=== PATIENT | male | born 1985 | race American Indian/Alaskan Native ===

== ENCOUNTER 2017-01-02 18:01 | Emergency (ER) | payer SELFPAY ==
[2017-01-02 22:31] VITALS: BP 129/83
--- NOTE | 2017-01-03 06:51 | Emergency Department Report ---
Entered by KAYCEE TRUJILLO, acting as scribe for DAVID DIAZ NP. - General Chief Complaint: Upper Respiratory Infection Stated Complaint: FLU LIKE SYMPTOMS Time Seen by Provider: 01/02/17 19:22 Source: patient Mode of arrival: Ambulatory Limitations: No Limitations - History of Present Illness Initial Comments: 31 y/o male presents c/o flu like Sx that started 3 days ago. Sx include rhinorhhea, sore throat, abd pain, body aches, MAYES and productive yellow sputum producing cough. Pt denies fever, ear pain, wheezing, chest pain, SOB or N/V. Pt notes niece and sister as positive sick contacts with the flu. No OTC meds have been taken. MD Complaint: cough, sore throat, rhinorrhea, nasal congestion -: days(s) (3) Severity: mild Quality: aching Consistency: constant Improves With: nothing Worsens With: nothing Context: sick contacts (niece and sister) Associated Symptoms: headache, rhinorrhea, nasal congestion, sore throat, cough , abdominal pain, other (body aches, MAYES but pt denies wheezing, ear pain). denies: fever, chest pain, shortness of breath, nausea, vomiting, ear pain Treatments Prior to Arrival: none - Related Data Previous Rx's Medication Instructions Recorded Last Taken Type Ibuprofen [Motrin] 600 mg PO Q8H PRN #30 tablet 10/22/15 Unknown Rx traMADol [Ultram] 50 mg PO Q6HR PRN #20 tablet 10/22/15 Unknown Rx ALBUTEROL Inhaler [ProAir HFA 2 puff IH QID PRN #1 inhalation 01/08/16 Unknown Rx Inhaler] Amoxicillin 500 mg PO BID 10 Days 01/02/17 Unknown Rx Ibuprofen [Motrin 600 MG tab] 600 mg PO Q8H PRN 7 Days 01/02/17 Unknown Rx Allergies Allergy/AdvReac Type Severity Reaction Status Date / Time No Known Allergies Allergy Unverified 08/26/14 10:42 ED Review of Systems Comment: All other systems reviewed and negative Constitutional: other (body aches). denies: chills, fever Eyes: denies: eye pain, eye discharge, vision change ENT: other (rhinorrhea). denies: ear pain, throat pain Respiratory: cough. denies: shortness of breath, wheezing Cardiovascular: denies: chest pain, palpitations Endocrine: no symptoms reported Gastrointestinal: abdominal pain. denies: nausea, diarrhea Genitourinary: denies: urgency, dysuria Musculoskeletal: denies: back pain, joint swelling, arthralgia Skin: denies: rash, lesions Neurological: headache. denies: weakness, paresthesias Psychiatric: denies: anxiety, depression Hematological/Lymphatic: denies: easy bleeding, easy bruising ED Past Medical Hx - Past Medical History Previous Medical History?: Yes Additional medical history: bronchitis - Surgical History Past Surgical History?: No - Social History Smoking Status: Current Every Day Smoker Substance Use Type: None - Medications Home Medications: Home Medications Medication Instructions Recorded Confirmed Last Taken Type Ibuprofen [Motrin] 600 mg PO Q8H PRN #30 tablet 10/22/15 Unknown Rx traMADol [Ultram] 50 mg PO Q6HR PRN #20 tablet 10/22/15 Unknown Rx ALBUTEROL Inhaler [ProAir HFA 2 puff IH QID PRN #1 inhalation 01/08/16 Unknown Rx Inhaler] Amoxicillin 500 mg PO BID 10 Days 01/02/17 Unknown Rx Ibuprofen [Motrin 600 MG tab] 600 mg PO Q8H PRN 7 Days 01/02/17 Unknown Rx ED Physical Exam - General Limitations: No Limitations General appearance: alert, in no apparent distress - Head Head exam: Present: atraumatic, normocephalic - Eye Eye exam: Present: normal appearance - ENT ENT exam: Present: mucous membranes moist, other (slight erythema of oropharanx , no tonsillar exudates, no tonsillitis, erythema of nostrils bilaterally) - Neck Neck exam: Present: normal inspection - Respiratory Respiratory exam: Present: normal lung sounds bilaterally. Absent: respiratory distress - Cardiovascular Cardiovascular Exam: Present: regular rate, normal rhythm. Absent: systolic murmur, diastolic murmur, rubs, gallop - GI/Abdominal GI/Abdominal exam: Present: soft, normal bowel sounds - Rectal Rectal exam: Present: deferred - Extremities Exam Extremities exam: Present: normal inspection - Back Exam Back exam: Present: normal inspection - Neurological Exam Neurological exam: Present: alert, oriented X3 - Psychiatric Psychiatric exam: Present: normal affect, normal mood - Skin Skin exam: Present: warm, dry, intact, normal color. Absent: rash ED Course Vital Signs 01/02/17 01/02/17 18:37 22:30 Temperature 98.0 F Pulse Rate 59 L 53 L Respiratory 20 16 Rate Blood Pressure 131/86 Blood Pressure 129/83 [Left] O2 Sat by Pulse 100 Oximetry ED Medical Decision Making - Medical Decision Making Ed course: 31-year-old male that presents with upper respiratory symptoms 1- fluid and swab has been obtained in the ED. Negative for both. 2- patient was instructed of results. 3- patient receive a prescription of amoxicillin and was instructed to take if symptoms worsen or if symptoms continue more than 10 days. 4- the time of discharge the patient does not seem toxic or ill in appearance. No signs of distress noted. 5- patient agrees to discharge plan and treatment. No further questions noted at the time. 6- I also instructed patient to increase rest and fluids as this may be a viral and will take couple days to subside ED Disposition Clinical Impression: Upper respiratory infection Qualifiers: URI type: unspecified URI Qualified Code(s): J06.9 - Acute upper respiratory infection, unspecified Disposition: DISCHARGED TO HOME OR SELFCARE Is pt being admited?: No Does the pt Need Aspirin: No Condition: Stable Instructions: Ibuprofen (By mouth), Upper Respiratory Infection (ED) Additional Instructions: Follow-up with the primary care doctor in 3-5 days. Take antibiotics as prescribed only if symptoms worsen or symptoms continue for 10 days Increase rest and fluids intake. Prescriptions: Amoxicillin 500 mg PO BID 10 Days Ibuprofen [Motrin 600 MG tab] 600 mg PO Q8H PRN 7 Days PRN Reason: Pain Referrals: PRIMARY CARE, [Primary Care Provider] - 3-5 Days [facility] [Outside] - 3-5 Days [facility] [Outside] - 3-5 Days Forms: Work/School Release Form(ED) This documentation as recorded by the CASSANDRA agosto RYAN,accurately reflects the service I personally performed and the decisions made by ,DAVID DIAZ, YAZMIN.
== END 2017-01-02 22:32 | disposition home or self-care (01) ==
LOC: ED 18:01
DX: J06.9 Acute upper respiratory infection, unspecified (principal); F17.200 Nicotine dependence, unspecified, uncomplicated
CPT/HCPCS: 87116; 87400; 87430; 99282

== ENCOUNTER 2017-08-14 04:12 | Emergency (ER) | payer BC ==
[2017-08-14 05:51] VITALS: BP 127/64
--- NOTE | 2017-08-14 06:26 | XRay Report ---
FINAL REPORT EXAM: XR CHEST ROUTINE 2V HISTORY: cough and congestion TECHNIQUE: PA and lateral views of the chest were submitted. FINDINGS: The heart size and mediastinum appear normal. The lungs are clear. Pleural fluid is not seen. The bones and soft tissues well maintained. IMPRESSION: No active chest disease.
--- NOTE | 2017-08-14 09:44 | Emergency Department Report ---
HPI - General Chief Complaint: Upper Respiratory Infection Time Seen by Provider: 08/14/17 09:27 - HPI HPI: 32-year-old male with no prior medical history presents to the ED complaining for body aches, runny nose and sore throat 2 days. Patient states is taking some [id number] medication with no relief. She does not recall any sick contacts. She denies fevers/chills/nausea/vomiting this abdomen S chest pains or shortness of breath or any other problems. ED Past Medical Hx - Past Medical History Additional medical history: bronchitis - Surgical History Past Surgical History?: No - Social History Smoking Status: Current Every Day Smoker Substance Use Type: None - Medications Home Medications: Home Medications Medication Instructions Recorded Confirmed Last Taken Type traMADol [Ultram] 50 mg PO Q6HR PRN #20 tablet 10/22/15 Unknown Rx ALBUTEROL Inhaler [ProAir HFA 2 puff IH QID PRN #1 inhalation 01/08/16 Unknown Rx Inhaler] Amoxicillin 500 mg PO BID 10 Days capsule 01/02/17 Unknown Rx Ibuprofen [Motrin 600 MG tab] 600 mg PO Q8H PRN 7 Days tablet 01/02/17 Unknown Rx Ibuprofen [Motrin 600 MG tab] 600 mg PO Q8H PRN #30 tablet 08/14/17 Unknown Rx Nystas/Diphen/Xyl Visc/Mylanta 15 ml PO TID #60 ml 08/14/17 Unknown Rx [Magic Mouthwash] guaiFENesin ER [Mucinex ER] 600 mg PO Q12H #20 tablet.er 08/14/17 Unknown Rx ED Review of Systems ROS: Stated complaint: FLU LIKE SYMPTOMS Other details as noted in HPI Constitutional: denies: chills, fever Eyes: denies: eye pain, eye discharge, vision change ENT: throat pain, congestion. denies: ear pain Respiratory: denies: cough, shortness of breath, wheezing Cardiovascular: denies: chest pain, palpitations Endocrine: no symptoms reported Gastrointestinal: denies: abdominal pain, nausea, vomiting, diarrhea Genitourinary: denies: urgency, dysuria, frequency, hematuria Musculoskeletal: denies: back pain, joint swelling, arthralgia Skin: denies: rash, lesions, pruritus Neurological: denies: headache, weakness, paresthesias Psychiatric: denies: anxiety, depression Hematological/Lymphatic: denies: easy bleeding, easy bruising Physical Exam - Physical Exam Vital Signs: Vital Signs 08/14/17 05:43 Temperature 98.4 F Pulse Rate 56 L Respiratory 16 Rate Blood Pressure 127/64 O2 Sat by Pulse 98 Oximetry Physical Exam: GENERAL: Alert and oriented x3, no apparent distress, Normal Gait, atraumatic. HEAD: Head is normocephalic and a-traumatic. EYES: Extra ocular muscles are intact. Pupils are equal, round, and reactive to light and accommodation. EARS: symetrical, atraumatic, non tender, ear canal clear and moderate cerumen, tympanic membrance non inflamed. gross auditory nml bilaterally. NOSE: Nose symetrical, Nontender,Nares appeared normal. MOUTH:Mouth is well hydrated and without lesions. Tonsils nonerythematous or swollen, Uvula midline, Tongue not elevated. Mucous membranes are moist. Posterior pharynx clear, no exudate or lesions. Patent airways. NECK: Supple. Non edematous, No carotid bruits. No lymphadenopathy or thyromegaly. No C-spine tenderness LUNGS: Symetrical with respiration, No wheezing, no rales or crackles, CTAB. HEART: S1, S2 present, regular rate and rhythm without murmur, no rubs, no gallops. Non tender to palpation SKIN: Warm and dry, No lesions, No ulceration or induration present. ED Course Vital Signs 08/14/17 05:43 Temperature 98.4 F Pulse Rate 56 L Respiratory 16 Rate Blood Pressure 127/64 O2 Sat by Pulse 98 Oximetry ED Medical Decision Making - Medical Decision Making 32-year-old male presents with upper respiratory infection ED course: Rapid strep test negative Discussed findings with the patient I discussed with the patient to follow up with primary care physician I discussed with the patient to take medication as prescribed, get some rest, took some vitamin C. Vital signs are normal patient is in no acute distress States he understands instructions and will follow Critical care attestation.: If time is entered above; I have spent that time in minutes in the direct care of this critically ill patient, excluding procedure time. ED Disposition Clinical Impression: URI (upper respiratory infection) Qualifiers: URI type: unspecified URI Qualified Code(s): J06.9 - Acute upper respiratory infection, unspecified Disposition: TO HOME OR SELFCARE Is pt being admited?: No Does the pt Need Aspirin: No Condition: Stable Instructions: Upper Respiratory Infection (ED) Additional Instructions: Make sure to follow up with the primary care physician as discussed. Take all your medications as you've been prescribed. If you have any worsening symptoms or develop new symptoms please return to ED immediately. Prescriptions: guaiFENesin ER [Mucinex ER] 600 mg PO Q12H #20 tablet.er Ibuprofen [Motrin 600 MG tab] 600 mg PO Q8H PRN #30 tablet PRN Reason: Pain Nystas/Diphen/Xyl Visc/Mylanta [Magic Mouthwash] 15 ml PO TID #60 ml Referrals: PRIMARY CARE, [Primary Care Provider] - 3-5 Days [facility] [Outside] - 3-[address] [facility] [Outside] - 3-5 Days Forms: Work/School Release Form(ED) Time of Disposition: 09:59
[2017-08-14] MEDS ORDERED: MOTRIN PO ONE (09:53)
== END 2017-08-14 10:20 | disposition home or self-care (01) ==
LOC: ED 04:12
DX: J06.9 Acute upper respiratory infection, unspecified (principal); F17.200 Nicotine dependence, unspecified, uncomplicated
CPT/HCPCS: 71020; 87116; 87430; 99283

== ENCOUNTER 2019-04-12 14:39 | Emergency (ER) | payer SELFPAY ==
[2019-04-12 15:15] VITALS: BP 136/83
[2019-04-12] MEDS ORDERED: TORADOL IM ONE (15:20)
[2019-04-12] MEDS ORDERED: TORADOL ONE (15:23)
--- NOTE | 2019-04-12 15:25 | Emergency Department Report ---
ED Extremity Problem HPI - General Chief complaint: Extremity Injury, Lower Stated complaint: LFT SIDE HIP INJURY/PAIN Time Seen by Provider: 04/12/19 15:19 Source: patient Mode of arrival: Ambulatory Limitations: No Limitations - History of Present Illness Initial comments: 33 y/o male comes in for left hip pain after bowling yesterday. Patient denies any trauma feels that when he let the ball go he felt a strain in his left hip. Patient has taken IB 400mg once. Complaint: extremity pain Onset/Timin -: days(s) Location: left, other (hip) History of Same: No -: Yes myalgia Severity scale (0 -10): 6 Quality: burning, aching Consistency: intermittent Improves with: rest Associated Symptoms: denies other symptoms - Related Data Previous Rx's Medication Instructions Recorded Last Taken Type traMADol [Ultram] 50 mg PO Q6HR PRN #20 tablet 10/22/15 Unknown Rx ALBUTEROL Inhaler (OR & NICU) 2 puff IH QID PRN #1 inhalation 01/08/16 Unknown Rx [ProAir HFA Inhaler] Amoxicillin 500 mg PO BID 10 Days capsule 01/02/17 Unknown Rx Ibuprofen [Motrin 600 MG tab] 600 mg PO Q8H PRN 7 Days tablet 01/02/17 Unknown Rx Ibuprofen [Motrin 600 MG tab] 600 mg PO Q8H PRN #30 tablet 08/14/17 Unknown Rx Nystas/Diphen/Xyl Visc/Mylanta 15 ml PO TID #60 ml 08/14/17 Unknown Rx [Magic Mouthwash] guaiFENesin ER [Mucinex ER] 600 mg PO Q12H #20 tablet.er 08/14/17 Unknown Rx Ibuprofen [Motrin 800 MG tab] 800 mg PO Q8HR PRN #30 tablet 04/12/19 Unknown Rx Allergies Allergy/AdvReac Type Severity Reaction Status Date / Time No Known Allergies Allergy Unverified 08/26/14 10:42 ED Review of Systems ROS: Stated complaint: LFT SIDE HIP INJURY/PAIN Other details as noted in HPI Comment: All other systems reviewed and negative ED Past Medical Hx - Past Medical History Previous Medical History?: No Additional medical history: bronchitis - Surgical History Past Surgical History?: No - Social History Smoking Status: Never Smoker Substance Use Type: None - Medications Home Medications: Home Medications Medication Instructions Recorded Confirmed Last Taken Type traMADol [Ultram] 50 mg PO Q6HR PRN #20 tablet 10/22/15 Unknown Rx ALBUTEROL Inhaler (OR & NICU) 2 puff IH QID PRN #1 inhalation 01/08/16 Unknown Rx [ProAir HFA Inhaler] Amoxicillin 500 mg PO BID 10 Days capsule 01/02/17 Unknown Rx Ibuprofen [Motrin 600 MG tab] 600 mg PO Q8H PRN 7 Days tablet 01/02/17 Unknown Rx Ibuprofen [Motrin 600 MG tab] 600 mg PO Q8H PRN #30 tablet 08/14/17 Unknown Rx Nystas/Diphen/Xyl Visc/Mylanta 15 ml PO TID #60 ml 08/14/17 Unknown Rx [Magic Mouthwash] guaiFENesin ER [Mucinex ER] 600 mg PO Q12H #20 tablet.er 08/14/17 Unknown Rx Ibuprofen [Motrin 800 MG tab] 800 mg PO Q8HR PRN #30 tablet 04/12/19 Unknown Rx ED Physical Exam - General Limitations: No Limitations General appearance: alert, in no apparent distress - Head Head exam: Present: atraumatic, normocephalic - Eye Eye exam: Present: normal appearance - ENT ENT exam: Present: mucous membranes moist - Neck Neck exam: Present: normal inspection - Respiratory Respiratory exam: Present: normal lung sounds bilaterally. Absent: respiratory distress - Cardiovascular Cardiovascular Exam: Present: regular rate, normal rhythm. Absent: systolic murmur, diastolic murmur, rubs, gallop - GI/Abdominal GI/Abdominal exam: Present: soft, normal bowel sounds - Rectal Rectal exam: Present: deferred - Extremities Exam Extremities exam: Present: normal inspection - Back Exam Back exam: Present: normal inspection - Neurological Exam Neurological exam: Present: alert, oriented X3 - Psychiatric Psychiatric exam: Present: normal affect, normal mood - Skin Skin exam: Present: warm, dry, intact, normal color. Absent: rash ED Course Vital Signs 04/12/19 15:14 Temperature 97.7 F Pulse Rate 48 L Respiratory 16 Rate Blood Pressure 136/83 O2 Sat by Pulse 100 Oximetry ED Medical Decision Making - Medical Decision Making 33 y/o male comes in for left hip pain after bowling yesterday. Patient denies any trauma feels that when he let the ball go he felt a strain in his left hip. Patient has taken IB 400mg once. Patient given toradol 30 mg and discharge home with ibuprofen 800mg tid. Discussed with patient to take on a schedule basis for 3 days and than as needed. Critical care attestation.: If time is entered above; I have spent that time in minutes in the direct care of this critically ill patient, excluding procedure time. ED Disposition Clinical Impression: Acute pain of left hip Disposition: TO HOME OR SELFCARE Is pt being admited?: No Does the pt Need Aspirin: No Condition: Stable Additional Instructions: Please take medication as prescribed. If gets worst f/i with Primary care provider. Prescriptions: Ibuprofen [Motrin 800 MG tab] 800 mg PO Q8HR PRN #30 tablet PRN Reason: Pain , Severe (7-10) Referrals: [facility] [Provider Group] - 3-5 Days Forms: Work/School Release Form(ED)
== END 2019-04-12 15:51 | disposition home or self-care (01) ==
LOC: ED 14:39
DX: M25.552 Pain in left hip (principal); Z79.899 Other long term (current) drug therapy
CPT/HCPCS: 96372; 99282; J1885

== ENCOUNTER 2019-12-13 15:53 | Emergency (ER) | payer SELFPAY ==
[2019-12-13 17:15] LABS: Hematocrit 44.3 % (35.5-45.6); Hemoglobin 15.1 gm/dl (11.8-15.2); Mean Corpuscular HGB Conc 34 % (32-34); Mean Corpuscular Volume 99 fl (84-94); Platelet Count 153 K/mm3 (140-440); Red Blood Count 4.48 M/mm3 (3.65-5.03); Red Cell Distribution Width 14.3 % (13.2-15.2)
[2019-12-13 17:29] LABS: Eosinophils % (Auto) 0.9 % (0.0-4.3); Monocytes # (Auto) 0.4 K/mm3 (0.0-0.8); Monocytes % (Auto) 9.1 % (0.0-7.3)
[2019-12-13 17:38] LABS: Alanine Aminotransferase 17 units/L (7-56); Albumin 5.2 g/dL (3.9-5); BUN/Creatinine Ratio 20; Blood Urea Nitrogen 18 mg/dL (9-20); Calcium 9.7 mg/dL (8.4-10.2); Hemolysis Index 19
[2019-12-13 17:39] LABS: Basophils % (Auto) 0.8 % (0.0-1.8); Lymphocytes % (Auto) 42.8 % (13.4-35.0)
[2019-12-13 17:40] LABS: Lymphocytes # (Auto) 2.1 K/mm3 (1.2-5.4)
--- NOTE | 2019-12-13 18:07 | Emergency Department Report ---
Chief Complaint: Abdominal Pain Stated Complaint: STOMACH PAIN, DIRR Time Seen by Provider: 12/13/19 17:14 - HPI History of Present Illness: Patient is a 34-year-old male presents emergency room with complaints of abdominal cramping and diarrhea that began earlier this morning. He states he had approximately 3 episodes. He states that he is feeling much better now. He states that he believes he has a lactose intolerance because every time he eats dairy he has increased gas and diarrhea. He states that he did have diary last night. Patient states that he had to call out of work secondary to the diarrhea and needs an excuse for work. He denies any abdominal pain currently. He denies any fever, nausea, vomiting, cough, shortness of breath, chest pain. Initial vitals with elevated blood pressure, which improved upon repeat On exam: Non toxic appearing, no acute distress atraumatic, normocephalic normal appearance of the eyes, PERRL, EOMI, no periorbital edema or ecchymosis moist mucus membranes regular heart rate and rhythm, no gallops, no rubs, no murmurs breath sounds are clear bilaterally, no w/r/r No abdominal tenderness palpation, no guarding, no rebound, no rigidity, normal bowel sounds A&O x4, no focal neuro deficit skin is warm, dry, intact Patient has no clinical signs or symptoms of dehydration Labs are normal He is no longer experiencing abdominal pain or diarrhea Patient is requesting an excuse due to calling out from work Discussed symptomatic tx and supportive care with patient pt will be referred to a primary care physician Discussed strict return precautions with patient Medical screening examination performed and there is no threat to life or limb at this time MSE screening note: Focused history and physical exam performed. ED Medical Decision Making - Lab Data Result diagrams: 12/13/19 17:07 12/13/19 17:07 Lab Results 12/13/19 12/13/19 Range/Units 17:07 17:07 WBC 4.9 (4.5-11.0) K/mm3 RBC 4.48 (3.65-5.03) M/mm3 Hgb 15.1 (11.8-15.2) gm/dl Hct 44.3 (35.5-45.6) % MCV 99 H (84-94) fl MCH 34 H (28-32) pg MCHC 34 (32-34) % RDW 14.3 (13.2-15.2) % Plt Count 153 (140-440) K/mm3 Lymph % (Auto) 42.8 H (13.4-35.0) % Louisa % (Auto) 9.1 H (0.0-7.3) % Eos % (Auto) 0.9 (0.0-4.3) % Baso % (Auto) 0.8 (0.0-1.8) % Lymph # 2.1 (1.2-5.4) K/mm3 Louisa # 0.4 (0.0-0.8) K/mm3 Eos # 0.0 (0.0-0.4) K/mm3 Baso # 0.0 (0.0-0.1) K/mm3 Seg Neutrophils % 46.4 (40.0-70.0) % Seg Neutrophils # 2.3 (1.8-7.7) K/mm3 Sodium 140 (137-145) mmol/L Potassium 4.3 (3.6-5.0) mmol/L Chloride 103.6 (98-107) mmol/L Carbon Dioxide 26 (22-30) mmol/L Anion Gap 15 mmol/L BUN 18 (9-20) mg/dL Creatinine 0.9 (0.8-1.5) mg/dL Estimated GFR > 60 ml/min BUN/Creatinine Ratio 20 % Glucose 96 (75-100) mg/dL Calcium 9.7 (8.4-10.2) mg/dL Total Bilirubin 1.00 (0.1-1.2) mg/dL AST 26 (5-40) units/L ALT 17 (7-56) units/L Alkaline Phosphatase 55 (35-129) units/L Total Protein 7.8 (6.3-8.2) g/dL Albumin 5.2 H (3.9-5) g/dL Albumin/Globulin Ratio 2.0 % Lipase 23 (13-60) units/L ED Disposition for MSE Clinical Impression: Abdominal cramping, Elevated blood pressure reading Diarrhea Qualifiers: Diarrhea type: unspecified type Qualified Code(s): R19.7 - Diarrhea, unspecified Disposition: MED SCREENING EXAM-LEFT Is pt being admited?: No Does the pt Need Aspirin: No Condition: Stable Instructions: Acute Diarrhea (ED) Additional Instructions: Increase your water intake. Eat a bland diet. Avoid dairy products. Follow-up with a primary care doctor in the next 3 to 5 days. Return to the emergency room for any new or worsening symptoms. Please follow-up with a primary care doctor regarding the elevation in your blood pressure during today's visit, to see if you need medical management. Keep a blood pressure log and take your blood pressure 3 times a day and take this to the primary care doctor. Eat a low-sodium diet. Increase your water intake. Incorporate 30 minutes of daily exercise. Referrals: [facility] [Outside] - 3-5 Days [facility] [Outside] - 3-5 Days EMIGDIO GARCIA MD [Staff Physician] - 3-5 Days Forms: Work/School Release Form(ED) Time of Disposition: 18:05 Print Language: TOGOLESE
[2019-12-13 18:13] VITALS: BP 150/90
== END 2019-12-13 18:12 | disposition left against medical advice (07) ==
LOC: ED 15:53
DX: R19.7 Diarrhea, unspecified (principal); R10.84 Generalized abdominal pain; R03.0 Elevated blood-pressure reading, without diagnosis of hypertension
CPT/HCPCS: 36415; 80053; 83690; 85025

== ENCOUNTER 2020-05-10 17:55 | Emergency (ER) | payer SELFPAY ==
[2020-05-10 19:48] VITALS: BP 140/88
--- NOTE | 2020-05-10 19:49 | Event Note ---
ED Screening Note Date of service: 05/10/20 Time: 19:46 ED Screening Note: 34-year-old male smoker with a history of bronchitis complaining of chills, coughing, shortness of breath, fever, States he was seen here more to be evaluated for his symptoms. This initial assessment/diagnostic orders/clinical plan/treatment(s) is/are subject to change based on patients health status, clinical progression and re- assessment by fellow clinical providers in the ED. Further treatment and workup at subsequent clinical providers discretion. Patient/guardian urged not to elope from the ED as their condition may be serious if not clinically assessed and managed. Initial orders include: cxr
--- NOTE | 2020-05-10 20:20 | XRay Report ---
CHEST 2 VIEWS INDICATION / CLINICAL INFORMATION: MAIN. COMPARISON: 08/14/2017 FINDINGS: SUPPORT DEVICES: None. HEART / MEDIASTINUM: No significant abnormality. LUNGS / PLEURA: No significant pulmonary or pleural abnormality. No pneumothorax. ADDITIONAL FINDINGS: No significant additional findings. IMPRESSION: 1. No acute findings. No significant interval change. Signer Name: Titus Steele MD Signed: 05/10/2020 8:16 PM Workstation Name: [id number]
[2020-05-10] MEDS ORDERED: predniSONE 20 MG TAB PO ONE (22:25)
[2020-05-10] MEDS ORDERED: IBUPROFEN 600 MG TAB PO ONE (22:26)
--- NOTE | 2020-05-10 23:10 | Emergency Department Report ---
- General Chief Complaint: Upper Respiratory Infection Stated Complaint: FEVER COUGH Source: patient Mode of arrival: Ambulatory Limitations: No Limitations - History of Present Illness Initial Comments: Patient is a 34-year-old -Turkmen male with no past medical history presents to the ED with complaint of acute onset persistent nasal and sinus congestion, frontal sinus pressure and pain, sore throat, hoarseness and persistent dry cough for the last 2 days. Patient states that in the last 12 hours, the symptoms have worsened such that he momentarily lost his voice. Patient denies fever, chills, dizziness, syncope, chest pain, abdominal pain, nausea, vomiting, change in vision, diarrhea or hearing loss. MD Complaint: cough, sore throat, rhinorrhea, nasal congestion, sinus pain -: Sudden, days(s) (2) Severity: severe Severity scale (0 -10): 6 Quality: sharp Consistency: constant Improves With: nothing Worsens With: nothing Context: sick contacts Associated Symptoms: denies other symptoms, headache, rhinorrhea, nasal congestion, sore throat, cough. denies: fever, chills, myalgias, diaphoresis, chest pain, shortness of breath, abdominal pain, nausea, vomiting, dysuria, rash, right sweats, epistaxis, ear pain, other Treatments Prior to Arrival: none - Related Data Previous Rx's Medication Instructions Recorded Last Taken Type traMADoL [Ultram] 50 mg PO Q6HR PRN #20 tablet 10/22/15 Unknown Rx Albuterol Mdi (or & Nicu Only) 2 puff IH QID PRN #1 inhalation 01/08/16 Unknown Rx [ProAir HFA Inhaler] Amoxicillin 500 mg PO BID 10 Days capsule 01/02/17 Unknown Rx Ibuprofen [Motrin 600 MG tab] 600 mg PO Q8H PRN 7 Days tablet 01/02/17 Unknown Rx Nystas/Diphen/Xyl Visc/Mylanta 15 ml PO TID #60 ml 08/14/17 Unknown Rx [Magic Mouthwash] guaiFENesin ER [Mucinex ER] 600 mg PO Q12H #20 tablet.er 08/14/17 Unknown Rx Ibuprofen [Motrin 800 MG tab] 800 mg PO Q8HR PRN #30 tablet 04/12/19 Unknown Rx Azithromycin [Zithromax Z-KEN] 250 mg PO DAILY #6 tablet 09/02/20 Unknown Rx Ibuprofen [Motrin 600 MG tab] 600 mg PO Q8H PRN #30 tablet 05/10/20 Unknown Rx methylPREDNISolone [Medrol 4MG 4 mg PO DAILY #21 tab.ds.pk 05/10/20 Unknown Rx DOSEPAK (21 tabs)] Allergies Allergy/AdvReac Type Severity Reaction Status Date / Time No Known Allergies Allergy Unverified 08/26/14 10:42 ED Review of Systems ROS: Stated complaint: FEVER COUGH Other details as noted in HPI Constitutional: denies: chills, fever Eyes: denies: eye pain, eye discharge, vision change ENT: throat pain, congestion. denies: ear pain Respiratory: cough. denies: shortness of breath, wheezing Cardiovascular: denies: chest pain, palpitations Endocrine: no symptoms reported Gastrointestinal: denies: abdominal pain, nausea, diarrhea Genitourinary: denies: urgency, dysuria Musculoskeletal: denies: back pain, joint swelling, arthralgia Skin: denies: rash, lesions Neurological: headache. denies: weakness, paresthesias Psychiatric: denies: anxiety, depression Hematological/Lymphatic: denies: easy bleeding, easy bruising ED Past Medical Hx - Past Medical History Previous Medical History?: No Additional medical history: bronchitis - Surgical History Past Surgical History?: No - Social History Smoking Status: Current Every Day Smoker Substance Use Type: Alcohol, Marijuana - Medications Home Medications: Home Medications Medication Instructions Recorded Confirmed Last Taken Type traMADoL [Ultram] 50 mg PO Q6HR PRN #20 tablet 10/22/15 Unknown Rx Albuterol Mdi (or & Nicu Only) 2 puff IH QID PRN #1 inhalation 01/08/16 Unknown Rx [ProAir HFA Inhaler] Amoxicillin 500 mg PO BID 10 Days capsule 01/02/17 Unknown Rx Ibuprofen [Motrin 600 MG tab] 600 mg PO Q8H PRN 7 Days tablet 01/02/17 Unknown Rx Nystas/Diphen/Xyl Visc/Mylanta 15 ml PO TID #60 ml 08/14/17 Unknown Rx [Magic Mouthwash] guaiFENesin ER [Mucinex ER] 600 mg PO Q12H #20 tablet.er 08/14/17 Unknown Rx Ibuprofen [Motrin 800 MG tab] 800 mg PO Q8HR PRN #30 tablet 04/12/19 Unknown Rx Azithromycin [Zithromax Z-KEN] 250 mg PO DAILY #6 tablet 05/10/20 Unknown Rx Ibuprofen [Motrin 600 MG tab] 600 mg PO Q8H PRN #30 tablet 05/10/20 Unknown Rx methylPREDNISolone [Medrol 4MG 4 mg PO DAILY #21 tab.ds.pk 05/10/20 Unknown Rx DOSEPAK (21 tabs)] ED Physical Exam - General Limitations: No Limitations General appearance: alert, in no apparent distress - Head Head exam: Present: atraumatic, normocephalic, normal inspection - Eye Eye exam: Present: normal appearance, PERRL, EOMI Pupils: Present: normal accommodation - ENT ENT exam: Present: mucous membranes moist, TM's normal bilaterally, normal external ear exam, other (Grossly congested nasal passages; palpable frontal sinus tenderness; erythematous oropharynx) - Neck Neck exam: Present: normal inspection, full ROM. Absent: tenderness, lymphadenopathy - Respiratory Respiratory exam: Present: normal lung sounds bilaterally. Absent: respiratory distress, wheezes, rales, rhonchi, chest wall tenderness, accessory muscle use, decreased breath sounds - Cardiovascular Cardiovascular Exam: Present: regular rate, normal rhythm, normal heart sounds. Absent: systolic murmur, diastolic murmur, rubs, gallop - GI/Abdominal GI/Abdominal exam: Present: soft, normal bowel sounds. Absent: tenderness, guarding, hyperactive bowel sounds, hypoactive bowel sounds - Extremities Exam Extremities exam: Present: normal inspection, full ROM - Back Exam Back exam: Present: normal inspection, full ROM. Absent: tenderness, CVA tenderness (R), CVA tenderness (L), muscle spasm, paraspinal tenderness - Neurological Exam Neurological exam: Present: alert, oriented X3, CN II-XII intact, normal gait, reflexes normal - Psychiatric Psychiatric exam: Present: normal affect, normal mood - Skin Skin exam: Present: warm, dry, intact, normal color. Absent: rash ED Course Vital Signs 05/10/20 19:46 Temperature 98 F Pulse Rate 70 Respiratory 18 Rate Blood Pressure 140/88 O2 Sat by Pulse 96 Oximetry ED Medical Decision Making - Radiology Data Radiology results: report reviewed, image reviewed Findings [facility] [address] [place] [address] XRay Report Signed Patient: NADYA JOSEPH MR#: [id number] : 1985 Acct:[id number] Age/Sex: 34 / M ADM Date: 05/10/20 Loc: ED Attending Dr: Ordering Physician: FÉLIX CLEMONS Date of Service: 05/10/20 Procedure(s): XR chest routine 2V Accession Number(s): [id number] cc: FÉLIX CLEMONS Fluoro Time In Minutes: CHEST 2 VIEWS INDICATION / CLINICAL INFORMATION: MAIN. COMPARISON: 08/14/2017 FINDINGS: SUPPORT DEVICES: None. HEART / MEDIASTINUM: No significant abnormality. LUNGS / PLEURA: No significant pulmonary or pleural abnormality. No pneumothorax. ADDITIONAL FINDINGS: No significant additional findings. IMPRESSION: 1. No acute findings. No significant interval change. Signer Name: Titus Valiente MD Signed: 05/10/2020 8:16 PM Workstation Name: [id number] Transcribed By: Dictated By: TITUS VALIENTE Electronically Authenticated By: TITUS VALIENTE Signed Date/Time: 05/10/202015 DD/ 13 TD/TT: - Medical Decision Making This is a 34-year-old -Turkmen male with no past medical history presents to the ED with complaint of acute onset persistent nasal and sinus congestion, frontal sinus pressure and pain, sore throat, hoarseness and persistent dry cough for the last 2 days. Patient states that in the last 12 hours, the symptoms have worsened such that he momentarily lost his voice. In the ED, patient is alert and oriented x3 and is not in distress. Patient was treated for pain in the ED also given oral prednisone. Chest x-ray shows no acute cardiopulmonary abnormalities or pneumonitis. Patient was discharged home on pain medications, antibiotic for sinusitis and pharyngitis and Medrol Dosepak. Patient was advised to follow-up with his primary care physician in 5 to 7 days for reevaluation or return to the ED immediately if symptoms get worse. - Differential Diagnosis Pneumonia; Bronchitis; URI; Pharyngitis Critical care attestation.: If time is entered above; I have spent that time in minutes in the direct care of this critically ill patient, excluding procedure time. ED Disposition Clinical Impression: Acute bacterial pharyngitis, Acute bacterial bronchitis, Acute bacterial sinusitis Disposition: - TO HOME OR SELFCARE Is pt being admited?: No Does the pt Need Aspirin: No Condition: Stable Instructions: Acute Bronchitis (ED), Acute Bacterial Rhinosinusitis (ED), Pharyngitis (ED) Additional Instructions: Take medication with food, drink plenty of fluids and follow-up with your primary care physician in 5 to 7 days for reevaluation. Return to the ED immediately if symptoms get worse. Prescriptions: methylPREDNISolone [Medrol 4MG DOSEPAK (21 tabs)] 4 mg PO DAILY #21 tab.ds.pk Ibuprofen [Motrin 600 MG tab] 600 mg PO Q8H PRN #30 tablet PRN Reason: Pain Azithromycin [Zithromax Z-KEN] 250 mg PO DAILY #6 tablet Referrals: PRIMARY CARE,MD [Primary Care Provider] - 3-5 Days Forms: Work/School Release Form(ED) Time of Disposition: 23:09 Print Language: ARABIC
== END 2020-05-10 23:30 | disposition home or self-care (01) ==
LOC: ED 17:55
DX: J20.8 Acute bronchitis due to other specified organisms (principal); J02.8 Acute pharyngitis due to other specified organisms; J01.90 Acute sinusitis, unspecified; F17.200 Nicotine dependence, unspecified, uncomplicated; F12.90 Cannabis use, unspecified, uncomplicated; Z79.899 Other long term (current) drug therapy
CPT/HCPCS: 71046; 99283; J7512

== ENCOUNTER 2021-04-26 16:20 | Emergency (ER) | payer OTHER ==
--- NOTE | 2021-04-26 22:04 | Emergency Department Report ---
ED General Adult HPI - General Chief complaint: Pain General Stated complaint: GENERAL SYMPTOMS Time Seen by Provider: 04/26/21 21:39 Source: patient Mode of arrival: Ambulatory Limitations: No Limitations - History of Present Illness Initial comments: Patient 35-year-old male with hx or asthma and bronchitis presents with generalized malaise cough and body aches after getting Pfizer Covid vaccination 1 week ago. There is no nausea vomiting, or fever however. Symptoms are exacerbated by activity completing work duties. Symptoms are relieved by rest. Patient states cough nonproductive. She does have history of asthma and bronchitis. Patient is tolerating p.o. intake at this time without symptoms. No diarrhea or vomiting. There are no other exacerbating or relieving factors. - Related Data Previous Rx's Medication Instructions Recorded Last Taken Type traMADoL [Ultram] 50 mg PO Q6HR PRN #20 tablet 10/22/15 Unknown Rx Albuterol Mdi (or & Nicu Only) 2 puff IH QID PRN #1 inhalation 01/08/16 Unknown Rx [ProAir HFA Inhaler] Amoxicillin 500 mg PO BID 10 Days capsule 01/02/17 Unknown Rx Ibuprofen [Motrin 600 MG tab] 600 mg PO Q8H PRN 7 Days tablet 01/02/17 Unknown Rx Nystas/Diphen/Xyl Visc/Mylanta 15 ml PO TID #60 ml 08/14/17 Unknown Rx [Magic Mouthwash] guaiFENesin ER [Mucinex ER] 600 mg PO Q12H #20 tablet.er 08/14/17 Unknown Rx Ibuprofen [Motrin 800 MG tab] 800 mg PO Q8HR PRN #30 tablet 04/12/19 Unknown Rx Azithromycin [Zithromax Z-KEN] 250 mg PO DAILY #6 tablet 05/10/20 Unknown Rx Ibuprofen [Motrin 600 MG tab] 600 mg PO Q8H PRN #30 tablet 05/10/20 Unknown Rx methylPREDNISolone [Medrol 4MG 4 mg PO DAILY #21 tab.ds.pk 05/10/20 Unknown Rx DOSEPAK (21 tabs)] Albuterol Mdi (or & Nicu Only) 2 puff IH QID PRN #8.5 gram 04/26/21 Unknown Rx [ProAir HFA Inhaler] Ibuprofen [Motrin 800 MG tab] 800 mg PO Q8HR PRN #30 tablet 04/26/21 Unknown Rx Prednisone [predniSONE 10 mg 10 mg PO .TAPER #1 tab.ds.pk 04/26/21 Unknown Rx (6-Day Pack, 21 Tabs)] Allergies Allergy/AdvReac Type Severity Reaction Status Date / Time No Known Allergies Allergy Unverified 08/26/14 10:42 ED Review of Systems ROS: Stated complaint: GENERAL SYMPTOMS Other details as noted in HPI Constitutional: chills, malaise Eyes: denies: eye pain, eye discharge, vision change ENT: throat pain, congestion. denies: ear pain Respiratory: cough. denies: shortness of breath, wheezing Cardiovascular: denies: chest pain, palpitations Endocrine: no symptoms reported Gastrointestinal: denies: abdominal pain, nausea, vomiting, diarrhea Genitourinary: denies: urgency, dysuria Musculoskeletal: denies: back pain, joint swelling, arthralgia Skin: denies: rash, lesions Neurological: headache, weakness. denies: numbness, paresthesias, confusion, vertigo Psychiatric: denies: anxiety, depression Hematological/Lymphatic: denies: easy bleeding, easy bruising ED Past Medical Hx - Past Medical History Previous Medical History?: Yes Additional medical history: bronchitis - Surgical History Past Surgical History?: No - Social History Smoking Status: Former Smoker Substance Use Type: None - Medications Home Medications: Home Medications Medication Instructions Recorded Confirmed Last Taken Type traMADoL [Ultram] 50 mg PO Q6HR PRN #20 tablet 10/22/15 Unknown Rx Albuterol Mdi (or & Nicu Only) 2 puff IH QID PRN #1 inhalation 01/08/16 Unknown Rx [ProAir HFA Inhaler] Amoxicillin 500 mg PO BID 10 Days capsule 01/02/17 Unknown Rx Ibuprofen [Motrin 600 MG tab] 600 mg PO Q8H PRN 7 Days tablet 01/02/17 Unknown Rx Nystas/Diphen/Xyl Visc/Mylanta 15 ml PO TID #60 ml 08/14/17 Unknown Rx [Magic Mouthwash] guaiFENesin ER [Mucinex ER] 600 mg PO Q12H #20 tablet.er 08/14/17 Unknown Rx Ibuprofen [Motrin 800 MG tab] 800 mg PO Q8HR PRN #30 tablet 04/12/19 Unknown Rx Azithromycin [Zithromax Z-KEN] 250 mg PO DAILY #6 tablet 05/10/20 Unknown Rx Ibuprofen [Motrin 600 MG tab] 600 mg PO Q8H PRN #30 tablet 05/10/20 Unknown Rx methylPREDNISolone [Medrol 4MG 4 mg PO DAILY #21 tab.ds.pk 05/10/20 Unknown Rx DOSEPAK (21 tabs)] Albuterol Mdi (or & Nicu Only) 2 puff IH QID PRN #8.5 gram 04/26/21 Unknown Rx [ProAir HFA Inhaler] Ibuprofen [Motrin 800 MG tab] 800 mg PO Q8HR PRN #30 tablet 04/26/21 Unknown Rx Prednisone [predniSONE 10 mg 10 mg PO .TAPER #1 tab.ds.pk 04/26/21 Unknown Rx (6-Day Pack, 21 Tabs)] ED Physical Exam - General Limitations: No Limitations General appearance: alert, in no apparent distress - Head Head exam: Present: atraumatic, normocephalic - Eye Eye exam: Present: normal appearance, EOMI Pupils: Present: normal accommodation - ENT ENT exam: Present: normal orophraynx, mucous membranes moist - Neck Neck exam: Present: normal inspection, full ROM. Absent: tenderness, lymphadenopathy - Respiratory Respiratory exam: Present: normal lung sounds bilaterally. Absent: respiratory distress, wheezes, stridor, chest wall tenderness - Cardiovascular Cardiovascular Exam: Present: regular rate, normal rhythm, normal heart sounds. Absent: systolic murmur, diastolic murmur, rubs, gallop - GI/Abdominal GI/Abdominal exam: Present: soft, normal bowel sounds. Absent: tenderness - Rectal Rectal exam: Present: deferred - Extremities Exam Extremities exam: Present: normal inspection, full ROM. Absent: tenderness - Back Exam Back exam: Present: normal inspection. Absent: CVA tenderness (R), CVA tenderness (L), rash noted - Neurological Exam Neurological exam: Present: alert, oriented X3, CN II-XII intact, normal gait. Absent: motor sensory deficit - Psychiatric Psychiatric exam: Present: normal affect, normal mood - Skin Skin exam: Present: warm, dry, intact, normal color. Absent: rash ED Course Vital Signs 04/26/21 20:27 Temperature 98.3 F Pulse Rate 51 L Respiratory 18 Rate Blood Pressure 155/94 O2 Sat by Pulse 94 Oximetry ED Medical Decision Making - Radiology Data Radiology results: report reviewed, image reviewed Fluoro Time In Minutes: XR chest routine 2V INDICATION / CLINICAL INFORMATION: cough fever. COMPARISON: 05/10/2020 FINDINGS: SUPPORT DEVICES: None. HEART /PULMONARY VASCULATURE: No significant abnormality. LUNGS / PLEURA: No significant pulmonary or pleural abnormality. No pneumothorax. ADDITIONAL FINDINGS: No significant additional findings. IMPRESSION: 1. No acute findings. Signer Name: Igor Desouza MD Signed: 04/26/2021 10:17 PM Workstation Name: [id number] Transcribed By: JONAS Dictated By: IGOR DESOUZA MD Electronically Authenticated By: IGOR DESOUZA MD Signed Date/Time: 04/26/212216 DD/ 16 TD/TT: - Medical Decision Making Chest x-ray clear no opacities no infiltrates. Vital signs are normal, respira tions are clear, even, and nonlabored, pt with nad. There is no fever, no n/v, pt is tolerating po intake without symptoms, Patient will be DC'd to home in stable condition at this time, NSAIDs as needed for aches and pains, refill prn inhaler, follow-up with primary care doctor in 2 to 3 days. Patient verbalized agreement and understanding with discharge plan. Patient DC'd home in stable condition at this time. Critical care attestation.: If time is entered above; I have spent that time in minutes in the direct care of this critically ill patient, excluding procedure time. ED Disposition Clinical Impression: Nonspecific syndrome suggestive of viral illness Disposition: HOME / SELF CARE / HOMELESS Is pt being admited?: No Does the pt Need Aspirin: No Condition: Stable Instructions: Viral Illness, Adult Additional Instructions: Refill your asthma medicines and take as needed. Hydrate as directed, follow-up with your doctor in 2 to 3 days. Patient is cleared to return alert, monitor fever and symptoms as per CDC guidelines... Prescriptions: Ibuprofen [Motrin 800 MG tab] 800 mg PO Q8HR PRN #30 tablet PRN Reason: pain fever Prednisone [predniSONE 10 mg (6-Day Pack, 21 Tabs)] 10 mg PO .TAPER #1 tab.ds.pk Albuterol Mdi (or & Nicu Only) [ProAir HFA Inhaler] 2 puff IH QID PRN #8.5 gram PRN Reason: Shortness Of Breath Referrals: YOVANI KAPOOR MD [Staff Physician] - 3-5 Days Forms: Work/School Release Form(ED) Time of Disposition: 23:07
--- NOTE | 2021-04-26 22:21 | XRay Report ---
XR chest routine 2V INDICATION / CLINICAL INFORMATION: cough fever. COMPARISON: 05/10/2020 FINDINGS: SUPPORT DEVICES: None. HEART /PULMONARY VASCULATURE: No significant abnormality. LUNGS / PLEURA: No significant pulmonary or pleural abnormality. No pneumothorax. ADDITIONAL FINDINGS: No significant additional findings. IMPRESSION: 1. No acute findings. Signer Name: Miguel Ramos MD Signed: 04/26/2021 10:17 PM Workstation Name: [id number]
[2021-04-27 08:07] VITALS: BP 154/106
== END 2021-04-26 23:40 | disposition home or self-care (01) ==
LOC: ED 16:20
DX: B34.9 Viral infection, unspecified (principal); J45.909 Unspecified asthma, uncomplicated; Z79.899 Other long term (current) drug therapy; Z87.891 Personal history of nicotine dependence
CPT/HCPCS: 71046